=== PATIENT | female | born 1995 | race Caucasian/White ===

== ENCOUNTER 2021-06-22 10:45 | Inpatient (IN) | payer BC ==
[~2021-06-22] VITALS: Ht 162.7 cm; Wt 3.8 kg
[2021-06-23] VITALS (18 sets, daily range): BP systolic 94–127; BP diastolic 34–94; PULSE 54–86; TEMP 97.5–98.4
[2021-06-23] MEDS ORDERED: PRENATAL TABLET PO (06:31)
[2021-06-23 06:46] LABS: BASO # 0.1 K/mm3 (0.0-0.2); BASO % 0.5 % (0.0-2.0); EOS # 0.2 K/mm3 (0.0-0.7); EOS % 1.6 % (0.0-4.0); GRAN % 65.5 % (42.2-75.2); HEMOGLOBIN 10.1 g/dl (12.5-16.0); LYMPH # 2.7 K/mm3 (1.2-3.4); LYMPH % 22.2 % (20.0-51.0); MEAN CELL VOLUME 84 fl (80.0-100.0); MEAN CORPUSCULAR HEMOGLOBIN 28 pg (27-31); MEAN CORPUSCULAR HGB CONC 34 g/dl (33.0-37.0); MEAN PLATELET VOLUME 11.8 fl (7.4-10.4); MONO # 1.1 K/mm3 (0.1-0.6); MONO % 9.2 % (1.7-9.3); PLATELET COUNT 310 K/mm3 (130-400); RED BLOOD COUNT 3.57 M/mm3 (4.10-5.30); REDCELL DISTRIBUTION WIDTH-CV 13.5 % (11.5-14.5)
[2021-06-23 06:49] LABS: HEMATOCRIT 29.8 % (37.0-47.0)
--- NOTE | 2021-06-23 10:02 | NUR ---
Initial visit; Parents thanked [employer] for offering congratulations and God's blessings for the of their son.
--- NOTE | 2021-06-24 04:19 | NUR ---
0350 ATTEMPTED TO SCAN PT BAND TO ADMINISTER PERC. COMPUTER WARNING "INITIAL PATIENT SCAN REQUIRED." HAD TO GET PT STICKER TO ADMIN MED.
[2021-06-24 07:09] VITALS: BP 128/81; PULSE 65; TEMP 97.8
[2021-06-24 15:38] VITALS: BP 120/64; PULSE 77; TEMP 97.6
[2021-06-24 19:30] VITALS: BP 126/50; PULSE 89; TEMP 97.9
[2021-06-25 07:00] VITALS: BP 120/76; PULSE 63; TEMP 97.6
[2021-06-25] MEDS ORDERED: MOTRIN 800800 MG/TAB PO (07:23)
[2021-06-25] MEDS ORDERED: PERCOCET 325 MG1 TA2 PO (07:23)
--- NOTE | 2021-06-25 10:14 | NUR ---
Follow-up visit; Parents thanked for looking in on them again today and visiting for a moment.
== END 2021-06-25 13:05 | disposition home or self-care (01) | DRG 788 ==
LOC: OB 06-23 05:19
PROVIDERS: ADMIT Obstetrics & Gynecology
PROC: 10D00Z1 Extraction of Products of Conception, Low, Open Approach (ICD-10-PCS; principal; 2021-06-23)
DX: O33.1 Maternal care for disproportion due to generally contracted pelvis (principal); O99.02 Anemia complicating childbirth; D64.9 Anemia, unspecified; R21 Rash and other nonspecific skin eruption; O90.89 Other complications of the puerperium, not elsewhere classified; Z3A.39 39 weeks gestation of pregnancy; Z37.0 Single live birth
CPT/HCPCS: J0171; J0690; J1885; J2175; J2370; J2405; J2590; J7120

== ENCOUNTER 2024-02-10 22:03 | Emergency (ER) | payer BC ==
[~2024-02-10] VITALS: Ht 162.6 cm; Wt 85.5 kg
[~2024-02-10 22:03] MED LIST: MOTRIN 800800 MG/TAB PO; PERCOCET 325 MG1 TA2 PO; PRENATAL TABLET PO
[2024-02-10 22:13] VITALS: TEMP 98.7
[2024-02-10] MEDS ORDERED: Tranexamic Acid 1,000 MG/10 ML VIAL IH ONE (22:45)
[2024-02-10 23:51] VITALS: BP 122/93; PULSE 81
== END 2024-02-10 23:51 | disposition home or self-care (01) ==
LOC: COL.ER 22:03
DX: J95.89 Other postprocedural complications and disorders of respiratory system, not elsewhere classified (principal)

== ENCOUNTER 2024-02-11 01:29 | Emergency (ER) | payer BC ==
[~2024-02-11] VITALS: Ht 162.6 cm; Wt 85.5 kg
[2024-02-11 01:35] VITALS: TEMP 97.7
[2024-02-11] MEDS ORDERED: Benzocaine Topical 200 (One Second) Sprays/57 GM Bottle MM (01:45)
[2024-02-11] MEDS ORDERED: Tranexamic Acid 1,000 MG/10 ML VIAL IH ONE (01:45)
[2024-02-11] MEDS ORDERED: Silver Nitrate Applicator 1 Stick TP ONE (01:45)
[2024-02-11] MEDS ORDERED: Ondansetron 4 MG/2 ML VIAL IV ONE (02:06)
[2024-02-11] MEDS ORDERED: Home Ondansetron ODT 4 MG #2 ODT/PACK PO PRN (02:30)
[2024-02-11 02:32] LABS: BASO # 0.1 K/mm3 (0.0-0.2); BASO % 0.4 % (0.0-2.0); EOS # 0.1 K/mm3 (0.0-0.7); GRAN # 7.8 K/mm3 (1.4-6.5); GRAN % 67.5 % (42.2-75.2); HEMOGLOBIN 11.9 g/dl (12.5-16.0); LYMPH # 2.6 K/mm3 (1.2-3.4); LYMPH % 22.9 % (20.0-51.0); MEAN CELL VOLUME 87 fl (80.0-100.0); MEAN CORPUSCULAR HEMOGLOBIN 30 pg (27-31); MEAN CORPUSCULAR HGB CONC 34 g/dl (33.0-37.0); MEAN PLATELET VOLUME 9.9 fl (7.4-10.4); MONO # 0.9 K/mm3 (0.1-0.6); MONO % 7.7 % (1.7-9.3); PLATELET COUNT 405 K/mm3 (130-400); RED BLOOD COUNT 4.01 M/mm3 (4.10-5.30); REDCELL DISTRIBUTION WIDTH-CV 12.8 % (11.5-14.5)
[2024-02-11 02:55] VITALS: BP 108/81; PULSE 90
== END 2024-02-11 02:55 | disposition home or self-care (01) ==
LOC: COL.ER 01:29
PROVIDERS: Emergency Medicine
DX: J95.831 Postprocedural hemorrhage of a respiratory system organ or structure following other procedure (principal)
CPT/HCPCS: J2405